=== PATIENT | male | born 1995 | race Two or more races ===

== ENCOUNTER 2023-04-01 15:49 | Inpatient (IN) | payer OTHER ==
[2023-04-01 16:49] VITALS: BMI 22.6
[2023-04-01] MEDS ORDERED: NICOTINE POLACRILEX 2 MG GUM BUC PRN (19:50)
[2023-04-01] MEDS ORDERED: BISMUTH SUBSALICYLATE 524 MG/30 ML PO PRN (19:50)
[2023-04-01] MEDS ORDERED: NALOXONE HCL (KLOXXADO) 8 MG SPRAY NS PRN (19:50)
[2023-04-01] MEDS ORDERED: POLYETHYLENE GLYCOL (HEALTHYLAX) 3350 17 GM PACKET PO PRN (19:50)
[2023-04-01] MEDS ORDERED: IBUPROFEN 400 MG TABLET (FP) PO PRN (19:50)
[2023-04-01] MEDS ORDERED: NALOXONE HCL 0.4 MG/ML VIAL IM PRN (19:50)
[2023-04-01] MEDS ORDERED: hydrOXYzine PAMOATE 25 MG CAPSULE (FP) PO PRN (19:50)
[2023-04-01] MEDS ORDERED: MAG HYDROX/AL HYDROX/SIMETH 30 ML UNIT-DOSE CUP PO PRN (19:50)
[2023-04-01] MEDS ORDERED: ACETAMINOPHEN 325 MG TABLET (FP) PO PRN (19:50)
[2023-04-01] MEDS ORDERED: BENZOCAINE/MENTHOL (CHLORASEPTIC ) LOZENGE MM PRN (19:50)
[2023-04-01] MEDS ORDERED: BENZONATATE 200 MG CAPSULE PO PRN (19:50)
[2023-04-01] MEDS ORDERED: LOPERAMIDE HCL 2 MG CAPSULE PO PRN (19:50)
[2023-04-01] MEDS ORDERED: DICYCLOMINE HCL 10 MG CAPSULE PO PRN (19:50)
[2023-04-01] MEDS ORDERED: IBUPROFEN 600 MG TABLET (FP) PO PRN (19:50)
[2023-04-01] MEDS ORDERED: METHOCARBAMOL 500 MG TABLET PO PRN (19:50)
[2023-04-01] MEDS ORDERED: ONDANSETRON *ODT* 4 MG TABLET SL PRN (19:50)
[2023-04-01] MEDS ORDERED: guaiFENesin 600 MG TABLET.ER (FP) PO PRN (19:50)
[2023-04-01] MEDS ORDERED: MAGNESIUM HYDROX 2400MG/30ML ORAL SUSPENSION 30 ML CUP PO PRN (19:50)
[2023-04-01] MEDS ORDERED: methaDONE HCL 10 MG TABLET (FOR DETOX USE ONLY) PO ONE (21:15)
[2023-04-01] MEDS: MELATONIN 5 MG TABLETS PO SCH (22:29)
[2023-04-01] MEDS: THIAMINE HCL 100 MG TABLET (FP) PO SCH (22:29)
[2023-04-02] MEDS: PRENATAL VITAMINS W/ FOLIC ACID TABLET (FP) PO SCH (10:00)
[2023-04-02] MEDS: levETIRAcetam 500 MG TABLET (FP) PO SCH ×2 (10:00→22:06)
[2023-04-02] MEDS: cloNIDine HCL 0.1 MG TABLET PO PRN (10:00)
[2023-04-02] MEDS: NICOTINE 14 MG/24 HOURS TOPICAL PATCH TD SCH (10:03)
[2023-04-02 11:39] LABS: HEMATOCRIT 35.5 % (35.4-49); HEMOGLOBIN 11.9 GM/dL (11.7-16.9); MCH 28.5 pg (25.7-33.7); MCHC 33.6 g/dl (32.0-35.9); MEAN CELL VOLUME 84.8 fl (80-96); PLATELET COUNT 386 10^3/uL (134-434); RBC 4.19 M/mm3 (4.00-5.60); RDW 14.8 % (11.9-15.9); WHITE BLOOD COUNT 5.2 K/mm3 (4.0-10.0)
[2023-04-02 11:42] LABS: CHLORIDE 110 mmol/L (98-107); POTASSIUM 3.7 mmol/L (3.5-5.1); SODIUM 139 mmol/L (136-145)
[2023-04-02 15:28] LABS: ALBUMIN 2.9 g/dl (3.4-5.0); CALCIUM 9.7 mg/dL (8.5-10.1)
[2023-04-02 15:29] LABS: CO2 25 mmol/L (21-32); GLUCOSE,RANDOM 84 mg/dL (74-106)
[2023-04-02 15:31] LABS: CREATININE 0.8 mg/dL (0.55-1.3)
[2023-04-02 15:32] LABS: SGOT/AST 17 U/L (15-37); SGPT/ALT 18 U/L (13-61)
[2023-04-02 15:33] LABS: BILIRUBIN,TOTAL 0.4 mg/dL (0.2-1); TOT PROT 8.6 g/dl (6.4-8.2)
[2023-04-02 15:34] LABS: ALK PHOS 64 U/L (45-117)
[2023-04-02 15:35] LABS: ANION GAP 4 mmol/L (4-13)
[2023-04-02] MEDS: THIAMINE HCL 100 MG TABLET (FP) PO SCH (22:06)
[2023-04-02] MEDS: MELATONIN 5 MG TABLETS PO SCH (22:06)
[2023-04-03] MEDS: NICOTINE 14 MG/24 HOURS TOPICAL PATCH TD SCH (09:29)
[2023-04-03] MEDS: levETIRAcetam 500 MG TABLET (FP) PO SCH (09:29)
[2023-04-03] MEDS: cloNIDine HCL 0.1 MG TABLET PO PRN (09:29)
[2023-04-03] MEDS: PRENATAL VITAMINS W/ FOLIC ACID TABLET (FP) PO SCH (09:29)
[2023-04-03] MEDS ORDERED: methaDONE HCL 10 MG TABLET (FOR DETOX USE ONLY) PO ONE (10:00)
[2023-04-03] MEDS ORDERED: diazePAM 5 MG TABLET PO PRN (10:55)
[2023-04-03] MEDS ORDERED: amLODIPine BESYLATE 5 MG TABLET (FP) PO SCH ×2 (11:00→14:00)
[2023-04-03 17:56] VITALS: BP 136/77; PULSE 64; RESP 17; TEMP 98
[2023-04-05] MEDS ORDERED: methaDONE HCL 10 MG TABLET (FOR DETOX USE ONLY) PO ONE (10:00)
== END 2023-04-03 19:25 | disposition left against medical advice (07) | DRG 770 ==
LOC: YASAS 15:49 → Y6N 21:05
PROVIDERS: ADMIT Allergy & Immunology; ATTEND Allergy & Immunology
PROC: HZ2ZZZZ Detoxification Services for Substance Abuse Treatment (ICD-10-PCS; principal; 2023-04-01)
DX: F11.23 Opioid dependence with withdrawal (principal); F14.20 Cocaine dependence, uncomplicated; F12.20 Cannabis dependence, uncomplicated; F17.210 Nicotine dependence, cigarettes, uncomplicated; I10 Essential (primary) hypertension; R56.9 Unspecified convulsions
CPT/HCPCS: 36415; 80053; 80307; 85027; 86780; 87635; 93005; 93010